=== PATIENT | female | born 2000 | race Two or more races ===

== ENCOUNTER 2021-05-05 14:45 | Emergency (ER) | payer OTHER ==
[~2021-05-05 14:45] MED LIST: NAPROSYN500 MG PO
[2021-05-05] MEDS ORDERED: CEPHALEXIN500 MG PO (15:45)
[2021-05-05] MEDS ORDERED: PREDNISONE 50 M50 MG PO (15:45)
== END 2021-05-05 15:55 | disposition home or self-care (01) ==
LOC: ER1 14:45
DX: L03.114 Cellulitis of left upper limb (principal); R21 Rash and other nonspecific skin eruption; Z91.041 Radiographic dye allergy status
CPT/HCPCS: 99282

== ENCOUNTER 2021-08-08 21:45 | Emergency (ER) | payer OTHER ==
[~2021-08-08 21:45] MED LIST changes: +CEPHALEXIN500 MG PO; +PREDNISONE 50 M50 MG PO
== END 2021-08-09 00:41 | disposition expired ==
LOC: ER1 21:45
DX: I46.9 Cardiac arrest, cause unspecified (principal); S09.90XA Unspecified injury of head, initial encounter; T14.90XA Injury, unspecified, initial encounter; V43.52XA Car driver injured in collision with other type car in traffic accident, initial encounter; Y93.89 Activity, other specified
CPT/HCPCS: 36430; 86900; 86901; 99284; P9016